=== PATIENT | male | born 1965 | race Caucasian/White ===

== ENCOUNTER 2016-04-29 14:59 | Emergency (ER) | payer OTHER ==
--- NOTE | 2016-04-29 15:14 | ED Physician Chart ---
Chief Complaint/HPI - Patient Information Date Seen:: 04/29/16 Time Seen:: 15:07 Chief Complaint:: Intermittent vertigo for about 3 weeks. History of Present Illness:: Intermittent vertigo for about 3 weeks. No fever. No MCDONALD. No visual changes in terms of blurry vision or diplopia. No weakness or numbness. No N/V/D. Allergies:: Allergies Allergy/AdvReac Type Severity Reaction Status Date / Time MDX No Known Allergies - Nka Allergy Verified 01/13/12 12:11 [No Known Allergies - Nka] Vitals:: see Nurse Note. Historian:: Patient Family MD/PCP:: Dr. Rojas LMP:: N/A Review:: Nurse's Note Reviewed Review of Systems - Review of Systems General/Constitutional: No fever, No chills, No weight loss, No weakness, No diaphoresis, No edema, No loss of appetite Skin: No skin lesions, No rash, No bruising Head: No headache, No light-headedness Eyes: No loss of vision, No pain, No diplopia ENT: No earache, No nasal drainage, No sore throat, No tinnitus Neck: No neck pain, No swelling, No thyromegaly, No stiffness, No mass noted Cardio Vascular: No chest pain, No palpitations, No PND, No orthopnea, No edema Pulmonary: No SOB, No cough, No sputum, No wheezing GI: No nausea, No vomiting, No diarrhea, No pain, No melena, No hematochezia, No constipation, No hematemesis G/U: No dysuria, No frequency, No hematuria Musculoskeletal: No bone or joint pain, No back pain, No muscle pain Endocrine: No polyuria, No polydipsia Psychiatric: No prior psych history Hematopoietic: No bruising, No lymphadenopathy Allergic/Immuno: No urticaria, No angioedema Neurological: No syncope, No focal symptoms, No weakness, No paresthesia, No headache, No seizure, No dizziness, No confusion, Vertigo Past Medical History - Past Medical History Past Medical History: HTN, DM Family History: HTN (father) Social History: Non Smoker, Alcohol (occasional), No Drug Use, , Employed, Other (lives with significant other.) 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 Surgical History: other (L knee and ankle surgeries about 20 years ago. R shoulder surgery about 2 years ago.) Psychiatricy History: None Medication: Reviewed Family Medical History - Family Member Father Ethnicity: Living Status: Hx Family Cancer: No Hx Family Coronary Artery Disease: No Hx Family Congestive Heart Failure: No Hx Family Hypertension: No Hx Family Stroke: No Hx Family Diabetes: Yes Hx Family Seizures: No Hx Family Dementia: No Hx Family AIDS: No Hx Family HIV: No Hx Family COPD: No Hx Family Hepatitis: No Hx Family Psychiatric Problems: No Hx Family Tuberculosis: No Physical Exam - Physical Examination General/Constitutional: Awake, Well-developed, well-nourished, Alert, No distress, GCS 15, Non-toxic appearing, Ambulatory Other Gen/Cons comments:: Breathes comfortably, speaks clearly, and ambulates without assistance without difficulty. Head: Atraumatic (cx) Eyes: Lids, conjuctiva normal, PERRL, EOMI Skin: Nl inspection, No rash, No skin lesions, No ecchymosis, Well hydrated, No lymphadenopathy ENMT: External ears, nose nl, TM canals nl, Nasal exam nl, Lips, teeth, gums nl , Oropharynx nl, Tonsils nl Neck: Nontender, Full ROM w/o pain, No nuchal rigidity, No mass, No stridor Respiratory: Nl effort/Exclusion, Clear to Auscultation, No Wheeze/Rhonchi/Rales Cardio Vascular: RRR, No murmur, gallop, rubs, NL S1 S2 Extremities: No tenderness or effusion, Full ROM, normal strength in all extremities, No edema, Normal digits & nails Neuro/Psych: Alert/oriented (oriented x 3), Judgement/insight normal, Mood normal, Normal gait, No focal deficits Other Neuro/Psych comments:: CN II to XII are grossly intact. Cerebellar exam (F to N, KATHERIN): normal. Negative Halpike Mari Manuver. ED Septic Shock - . Is Septic Shock (SBP<90, OR Lactate>4 mmol\L) present?: No Reassessment (Disposition) - Reassessment Reassessment:: 1535 Pt remains stable and well without vertigo or lightheadedness. Pt ambulates swiftly and steadily without assistance without difficulty. Accuchek was offered, but pt declined and stated that he preferred to check it at home. He stated that he is very familiar with managing his diabetes. Pt requests to go home now and does not want further observation/management in hospital. Aftercare instructions given. Reassessment Condition:: Improved - Diagnosis Diagnosis:: Intermittent vertigo consistent with acute labyrinthitis/BPPV, stable and currently asymptomatic. - Aftercare/Follow up Instructions Aftercare/Follow-Up Instructions:: Refer to Discharge Instructions Notes:: Continue present care. F/U with PCP Dr. Velazquez in 1-2 days for recheck. Return to ER immediately if condition worsens or if any further questions/problems. Drowsiness precautions given. Avoid driving or potential hazardous activities if vertigo symptom recurs or with the use of meclizine. Medication Prescribed:: Meclizine 25 mg tab one tab po q6h prn vertigo. D-15 R-0 - Patient Disposition Discharge/Transfer:: Home Time:: 15:40 Condition at Disposition:: Stable, Improved
== END 2016-04-29 15:50 | disposition home or self-care (01) ==
LOC: ER 14:59
DX: R42 Dizziness and giddiness (principal); E11.9 Type 2 diabetes mellitus without complications; I10 Essential (primary) hypertension

== ENCOUNTER 2016-06-20 22:37 | Inpatient (IN) | payer OTHER ==
[2016-06-20] MEDS ORDERED: Maalox 30 mL Cup PO ONE (22:56)
[2016-06-20] MEDS ORDERED: Donnatal Liq 5 ML UDC PO ONE (22:56)
--- NOTE | 2016-06-20 23:01 | ED Physician Chart ---
Chief Complaint/HPI - Patient Information Date Seen:: 06/20/16 Time Seen:: 22:57 Chief Complaint:: epigastric pain History of Present Illness:: pt here co epigastric pain x 1 hr. says it began after he ate hot wings. he has a hx of gastric reflux. he is not on any meds for this currently. he is on med for dm, htn and high chol. he is not a smoker. no sob. pt describes the pain as a severe burning. not sweaty. pt says pain is 8/10 no back pain no cough, no uri sx. no urinary change. Allergies:: Allergies Allergy/AdvReac Type Severity Reaction Status Date / Time No Known Allergies Allergy Verified 04/29/16 15:50 Historian:: Patient, Family Member (w) Review of Systems - Review of Systems General/Constitutional: No fever, No chills, No weight loss, No weakness, No diaphoresis, No edema, No loss of appetite Skin: No skin lesions, No rash, No bruising Head: No headache, No light-headedness Eyes: No loss of vision, No pain, No diplopia ENT: No earache, No nasal drainage, No sore throat, No tinnitus Neck: No neck pain, No swelling, No thyromegaly, No stiffness, No mass noted Cardio Vascular: No chest pain, No palpitations, No PND, No orthopnea, No edema Pulmonary: No SOB, No cough, No sputum, No wheezing GI: No nausea, No vomiting, No diarrhea, Pain, No melena, No hematochezia, No constipation, No hematemesis G/U: No dysuria, No frequency, No hematuria Musculoskeletal: No bone or joint pain, No back pain, No muscle pain Endocrine: No polyuria, No polydipsia Psychiatric: No prior psych history, No depression, No anxiety, No suicidal ideation Hematopoietic: No bruising, No lymphadenopathy Allergic/Immuno: No urticaria, No angioedema Neurological: No syncope, No focal symptoms, No weakness, No paresthesia, No headache, No seizure, No dizziness, No confusion, No vertigo Past Medical History - Past Medical History Past Medical History: HTN, DM, Dyslipidemia, PUD/GERD Social History: Non Smoker Medication: Reviewed Family Medical History - Family Member Father History Unknown: Yes Ethnicity: Living Status: Hx Family Cancer: No Hx Family Coronary Artery Disease: No Hx Family Congestive Heart Failure: No Hx Family Hypertension: No Hx Family Stroke: No Hx Family Diabetes: Yes Hx Family Seizures: No Hx Family Dementia: No Hx Family AIDS: No Hx Family HIV: No Hx Family COPD: No Hx Family Hepatitis: No Hx Family Psychiatric Problems: No Hx Family Tuberculosis: No Other Medical History: all 4 brothers have had gb sx Physical Exam - Physical Examination General/Constitutional: Awake, Well-developed, well-nourished, Alert, No distress, GCS 15, Non-toxic appearing, Ambulatory Other Gen/Cons comments:: mild obese. appears in sig discomfort. Head: Atraumatic Eyes: Lids, conjuctiva normal, PERRL, EOMI Skin: Nl inspection, No rash, No skin lesions, No ecchymosis, Well hydrated, No lymphadenopathy ENMT: External ears, nose nl, Nasal exam nl, Lips, teeth, gums nl Neck: Nontender, Full ROM w/o pain, No JVD, No nuchal rigidity, No bruit, No mass, No stridor Respiratory: Nl effort/Exclusion, Clear to Auscultation, No Wheeze/Rhonchi/Rales Cardio Vascular: RRR, No murmur, gallop, rubs, NL S1 S2 GI: No organomegaly, No hernia, Normal BS's, Nondistended, No mass/bruits, No McBurney tenderness Other GI comments:: tender at epigastrium no mass. no aaa. : No CVA tenderness Extremities: No tenderness or effusion, Full ROM, normal strength in all extremities, No edema, Normal digits & nails Other Extremities comments:: 2+ pulses b lower extr Neuro/Psych: Alert/oriented, DTR's symmetric, Normal sensory exam, Normal motor strength, Judgement/insight normal, Mood normal, Normal gait, No focal deficits Misc: normal gait, Normal back, No paraspinal tenderness Labs/Radiology/EKG Results - Lab Results Results: Laboratory Tests 06/20/16 06/20/16 06/20/16 23:03 23:03 23:03 WBC 10.8 D RBC 4.99 Hgb 15.1 Hct 42.8 D MCV 85.9 MCH 30.2 H MCHC Differential 35.2 RDW 12.3 Plt Count 205 MPV 9.9 Neutrophils % 68.7 Lymphocytes % 20.5 Monocytes % 7.0 Eosinophils % 3.7 Basophils % 0.1 Sodium 134 L Potassium 3.1 L Chloride 99 Carbon Dioxide 24.2 Anion Gap 13.9 BUN 21 Creatinine 0.9 Est GFR ( Amer) > 60.0 Est GFR (Non-Af Amer) > 60.0 BUN/Creatinine Ratio 23.3 Glucose 305 H Calcium 10.0 Total Bilirubin 1.4 H AST 67 H ALT 48 Alkaline Phosphatase 118 H Troponin I 0.01 Total Protein 7.6 Albumin 4.3 Globulin 3.3 Albumin/Globulin Ratio 1.3 Lipase 51 - Radiology Results Results: ct abd/p- gb is distended and full of gallstones. bibasilar lung scarring vs atelectasis - EKG Interpretations EKG Time:: 22:55 Rhythm: nsr [facility]: -47 Rate: 86 Comments:: LAD, no obv st/t changes ED Septic Shock - . Is Septic Shock (SBP<90, OR Lactate>4 mmol\L) present?: No Reassessment (Disposition) - Reassessment Reassessment:: pt feels much better pain is relieved. he was surprised to know his glucose was 300. he was unaware of his poor bp ctrl...says he is compliant he is willing to be admit. explained about gb. james walker...will admit. gb and liver enx and t bili and glucosee elev and htn all james mauro Reassessment Condition:: Improved - Diagnosis Diagnosis:: 1 gallbladder distended and full of gallstones w biliary colic 2 elevated t bilirubin 3 unctrld htn 4 poorly ctrld DM - Aftercare/Follow up Instructions Aftercare/Follow-Up Instructions:: Counseled pt regarding lab results/diagnosis & need follow up - Patient Disposition Admitted to:: Med/Surg Condition at Disposition:: Improved
[2016-06-20] MEDS ORDERED: Maalox 30 mL Cup ONE (23:03)
[2016-06-20] MEDS ORDERED: Donnatal Liq 5 ML UDC ONE (23:04)
[2016-06-20 23:09] LABS: % BASOPHILS 0.1 % (0.0-2.0); % EOSINOPHILS 3.7 % (0.0-5.0); % LYMPHOCYTES 20.5 % (20.0-50.0); % NEUTROPHILS 68.7 % (40.0-80.0); HEMOGLOBIN 15.1 gm/dL (13.2-17.3); MEAN CELL VOLUME 85.9 fl (80-99); MEAN CORPUSCULAR HEMOGLOBIN 30.2 pg (26.0-30.0); MEAN CORPUSCULAR HGB CONC 35.2 pg (28.0-36.0); MEAN PLATELET VOLUME 9.9 fl; NEUTROPHILE ABSOLUTE 7.4 Th/cmm (1.8-8.0); PLATELET COUNT 205 Th/cmm (150-400); RED BLOOD COUNT 4.99 Mil/cmm (4.30-5.70); RED CELL DISTRIBUTION WIDTH 12.3 % (11.5-20.0)
[2016-06-20 23:16] LABS: HEMATOCRIT 42.8 % (39.0-49.0); WHITE BLOOD COUNT 10.8 Th/cmm (4.8-10.8)
[2016-06-20 23:26] LABS: ALB/GLOB RATIO 1.3 (1.0-1.8); ALKALINE PHOSPHATASE 118 U/L (34-104); ANION GAP 13.9 (7.0-16.0); BILIRUBIN,TOTAL 1.4 mg/dL (0.3-1.0); BUN - UREA NITROGEN 21 mg/dL (7-25); BUN/CREATININE RATIO 23.3; CARBON DIOXIDE 24.2 mEq/L (21.0-31.0); CHLORIDE 99 mEq/L (98-107); CREATININE - SERUM 0.9 mg/dL (0.7-1.3); GLUCOSE 305 mg/dL (70-105); LIPASE 51 U/L (11-82); POTASSIUM SERUM 3.1 mEq/L (3.5-5.1); SGOT 67 U/L (13-39); SGPT/ALT 48 U/L (7-52); SODIUM SERUM 134 mEq/L (136-145)
[2016-06-20] MEDS ORDERED: Morphine Sulfate 4 mg/mL 1mL Syr ONE (23:28)
[2016-06-21] MEDS ORDERED: Sodium Chloride 0.9% 1,000 ML IV ONE (00:41)
[2016-06-21] MEDS ORDERED: KCL 20mEq/100mL Premix 20 MEQ/100 ML PIGGYBACK IV ONE (00:45)
[2016-06-21] MEDS: KCL 20mEq/100mL Premix 20 MEQ/100 ML PIGGYBACK IV SCH ×2 (00:46→03:04)
--- NOTE | 2016-06-21 03:26 | Admit Criteria Form ---
Admit Criteria Forms - Admit Criteria Diagnosis: ABDOMINAL PAIN Clinical Indications for Admission to Inpatient Care (Place 'X' for any and all applicable criteria): Admission is indicated for ANY ONE of the following(1)(2)(3)(4)(5): [ X]I. Inpatient admission required rather than observation care (Also use Abdominal Pain: Observation Care, as appropriate) because of ANY ONE of the following: [ ]a) Severe pain requiring acute inpatient management [X ]b) Identification of etiology/finding that requires inpatient care (eg, aortic dissection, free air) [ ]c) Absent bowel sounds with complete ileus(6) [ ]d) Suspected toxic megacolon [ ]e) Severe electrolyte abnormalities requiring inpatient care [ ]f) High fever or infection requiring inpatient admission as indicated by ANY ONE of following(7)(8): [ ] i) Appropriate outpatient or observational care antimicrobial treatment unavailable, not effective, or not feasible [ ] ii) Documented bacteremia [ ] iii) Temperature > 104.9 degrees F (oral) [ ] iv) T >103.1 F (oral) or < 96.8 F(rectal) that does not respond to all emergency treatment measures [ ]g) Signs of intestinal obstruction [B] [ ]h) Hemodynamic instability [ ]i) IV fluid to replace significant ongoing losses (greater than 3 L/m2 per day) (12)(13) [ ]j) Percutaneous or open drainage (eg, abscess, biliary tract ) procedures [ ]k) Parenteral nutrition regimen that must be implemented on inpatient basis [ ]l) Other condition,treatment or monitoring requiring inpatient admission. [ ]II. Peritoneal signs present [ ]III. Surgery needed that cannot be performed on an ambulatory basis. [ ]IV. Evaluation requires patient to not eat or drink for extended period ( eg, more than 24 hours). [ ]V. Contraindications and/or Inappropriate clinical situations for Observational Care in patients with abdominal pain, when ANY ONE of the following is required: [ ]a) Thorough evaluation is required to prevent catastrophic events due to delays in diagnosing (e.g.Mesenteric ischemia) 1,3 [ ]b) Patient with severe pathology or with chronic symptoms unlikely to improve in the ED stay (3) [ ]. General contraindications and/or Inappropriate clinical situations for Observational Care in patients with abdominal pain, when ANY ONE of the following is required: [ ]a) Prediction of prolongation of LOS based on ANY ONE of the following may be considered as a contraindication for observational care 2, 3, 4, 5, 6, 7, 8, 9, 10, 11 [ ]i) Age > 65 yrs. [ ]ii) Patient arriving by ambulance [ ]iii) Patient with high acuity [ ]iv) Patient requiring vital sign monitoring [ ]v) Patient on IV medication [ ]b) Systolic blood pressures 180mmHg 3,12 [ ]c) Patient with altered mental status including delirium and other alteration of consciousness, (3) [ ]d) Patient whose discharge disposition will be to a residential home or rehabilitation home should not be managed in Emergency Department Observation Unit. CMS rule requires 3 days hospital stay before such placement.3,13 [ ]e) Patient with failure to thrive due to broad array of etiologies 3,16,17 [ ]f) Inability to ambulate 3,14 Extended stay beyond goal length of stay may be needed for(2)(3): [ ]a) Persistent abdominal pain with suspected intra-abdominal process [ ]b) Diagnosed condition requiring continued stay (e.g., pancreatitis, complicated diverticulitis) [ ]c) Surgery (e.g., colectomy) The original [employer] includes the [facility] content created by [employer] has been revised. The portions of the content which have been revised are identified through the use of italic text or in bold, and [facility] has neither reviewed nor approved the modified material.All other unmodified content is copyright [employer] includes the [facility]. Please see references footnoted in the original [facility] edition 2016 Admit Criteria Met?: Yes
[2016-06-21 06:31] LABS: % EOSINOPHILS 0.4 % (0.0-5.0); % LYMPHOCYTES 13.9 % (20.0-50.0); % MONOCYTES 8.4 % (2.0-10.0); % NEUTROPHILS 77.3 % (40.0-80.0); HEMATOCRIT 39.1 % (39.0-49.0); HEMOGLOBIN 13.5 gm/dL (13.2-17.3); MEAN CORPUSCULAR HEMOGLOBIN 30.1 pg (26.0-30.0); MEAN CORPUSCULAR HGB CONC 34.6 pg (28.0-36.0); MEAN PLATELET VOLUME 10.5 fl; NEUTROPHILE ABSOLUTE 7.7 Th/cmm (1.8-8.0); PLATELET COUNT 178 Th/cmm (150-400); RED CELL DISTRIBUTION WIDTH 11.9 % (11.5-20.0); WHITE BLOOD COUNT 9.9 Th/cmm (4.8-10.8)
[2016-06-21] MEDS: INSULIN ASPART SLIDING SCALE 100 UNITS/ML UNIT SUBQ SCH ×3 (06:42→18:09)
[2016-06-21 06:43] LABS: ALB/GLOB RATIO 1.3 (1.0-1.8); ALKALINE PHOSPHATASE 118 U/L (34-104); AMYLASE SERUM 38 U/L (29-103); ANION GAP 8.8 (7.0-16.0); BILIRUBIN,TOTAL 1.9 mg/dL (0.3-1.0); BUN - UREA NITROGEN 18 mg/dL (7-25); BUN/CREATININE RATIO 22.5; CALCIUM SERUM 9.2 mg/dL (8.6-10.3); CARBON DIOXIDE 24.6 mEq/L (21.0-31.0); CHLORIDE 105 mEq/L (98-107); CREATININE - SERUM 0.8 mg/dL (0.7-1.3); GLUCOSE 289 mg/dL (70-105); LIPASE 33 U/L (11-82); POTASSIUM SERUM 4.4 mEq/L (3.5-5.1); SGOT 183 U/L (13-39); SGPT/ALT 163 U/L (7-52); SODIUM SERUM 134 mEq/L (136-145)
--- NOTE | 2016-06-21 09:24 | General Progress Note ---
Subjective - Review of Systems Events since last encounter: 06/21/16 RUQ and back pain last night has GB stones' LFT elevated HIDA ordered PE tender RUQ all family members has GB surgery DM, HTN, hyperlipedemia will schedule for surgery in AM if HIDA ok Objective - Results Result Diagrams: 06/21/16 05:09 06/21/16 05:09 Recent Labs: Laboratory Last Values WBC 9.9 Th/cmm (4.8-10.8) 06/21/16 05:09 RBC 4.50 Mil/cmm (4.30-5.70) 06/21/16 05:09 Hgb 13.5 gm/dL (13.2-17.3) 06/21/16 05:09 Hct 39.1 % (39.0-49.0) 06/21/16 05:09 MCV 87.0 fl (80-99) 06/21/16 05:09 MCH 30.1 pg (26.0-30.0) H 06/21/16 05:09 MCHC Differential 34.6 pg (28.0-36.0) 06/21/16 05:09 RDW 11.9 % (11.5-20.0) 06/21/16 05:09 Plt Count 178 Th/cmm (150-400) 06/21/16 05:09 MPV 10.5 fl 06/21/16 05:09 Neutrophils % 77.3 % (40.0-80.0) 06/21/16 05:09 Lymphocytes % 13.9 % (20.0-50.0) L 06/21/16 05:09 Monocytes % 8.4 % (2.0-10.0) 06/21/16 05:09 Eosinophils % 0.4 % (0.0-5.0) 06/21/16 05:09 Basophils % 0.0 % (0.0-2.0) 06/21/16 05:09 Sodium 134 mEq/L (136-145) L 06/21/16 05:09 Potassium 4.4 mEq/L (3.5-5.1) 06/21/16 05:09 Chloride 105 mEq/L (98-107) 06/21/16 05:09 Carbon Dioxide 24.6 mEq/L (21.0-31.0) 06/21/16 05:09 Anion Gap 8.8 (7.0-16.0) 06/21/16 05:09 BUN 18 mg/dL (7-25) 06/21/16 05:09 Creatinine 0.8 mg/dL (0.7-1.3) 06/21/16 05:09 Est GFR ( Amer) > 60.0 ml/min (>90) 06/21/16 05:09 Est GFR (Non-Af Amer) > 60.0 ml/min 06/21/16 05:09 BUN/Creatinine Ratio 22.5 06/21/16 05:09 Glucose 289 mg/dL (70-105) H 06/21/16 05:09 POC Glucose 259 MG/DL (70 - 105) H 06/21/16 06:38 Hemoglobin A1c % 9.2 % (4.0-6.0) H 06/20/16 23:03 Calcium 9.2 mg/dL (8.6-10.3) 06/21/16 05:09 Total Bilirubin 1.9 mg/dL (0.3-1.0) H 06/21/16 05:09 AST 183 U/L (13-39) H 06/21/16 05:09 ALT 163 U/L (7-52) H 06/21/16 05:09 Alkaline Phosphatase 118 U/L (34-104) H 06/21/16 05:09 Troponin I 0.01 ng/mL (0.01-0.05) 06/20/16 23:03 Total Protein 6.8 gm/dL (6.0-8.3) 06/21/16 05:09 Albumin 3.9 gm/dL (4.2-5.5) L 06/21/16 05:09 Globulin 2.9 gm/dL 06/21/16 05:09 Albumin/Globulin Ratio 1.3 (1.0-1.8) 06/21/16 05:09 Amylase 38 U/L (29-103) 06/21/16 05:09 Lipase 33 U/L (11-82) 06/21/16 05:09 - Physical Exam Vitals and I&O: Vital Signs Temp 97.6 F 06/21/16 04:00 Pulse 82 06/21/16 04:00 Resp 19 06/21/16 04:00 BP 139/80 06/21/16 04:00 Pulse Ox 93 06/21/16 04:00 Intake & Output 06/20/16 06/21/16 06/21/16 18:59 06:59 18:59 Intake Total 100 Balance 100 Intake: Intake, IV Amount 100 KCL 20mEq/100mL Premix 20 100 meq In 100 ml @ 50 mls/ hr IV Q2H [facility] Rx#: [id number] Oral 0 Other: # Voids 2 Active Medications: Current Medications Sodium Chloride (Nacl 0.9%) 1,000 mls @ 100 mls/hr IV .Q10H ONE Stop: 06/21/16 10:40 Last Admin: 06/21/16 00:47 Dose: 100 mls/hr Dextrose/Sodium Chloride (D5-0.45ns) 1,000 mls @ 100 mls/hr IV .Q10H [facility] Stop: 08/20/16 01:03 Ampicillin Sodium/Sulbactam (Sodium 3 gm/ Sodium Chloride) 100 mls @ 100 mls/ hr IV Q6HR [facility] Stop: 08/20/16 11:59 Insulin Aspart (Novolog Insulin Sliding Scale) 0 units SUBQ Q6HR [facility] PRN Reason: Protocol Stop: 08/20/16 05:59 Last Admin: 06/21/16 06:42 Dose: 6 units Morphine Sulfate (Morphine) 2 mg IVP Q3HR PRN PRN Reason: Pain (Severe) Stop: 08/20/16 01:01 Pantoprazole Sodium (Protonix) 40 mg IVP DAILY [facility] Stop: 08/20/16 08:59 Pneumococcal Polyvalent Vaccine (Pneumovax) 0.5 ml IM .ONCE ONE Stop: 06/21/16 12:01 Assessment/Plan - Problem List Patient Problems: All Active Problems DIZZINESS AFTER RIGHT EAR TRAUMA (Acute) Palpitations (Acute) R00.2
--- NOTE | 2016-06-21 09:39 | Diagnostic Imaging Report ---
CT scan abdomen and pelvis without intravenous contrast HISTORY: Pain Total DLP equals 761 CTDI equals 13.6 Axial sections were obtained from the xiphoid process down to the pubic symphysis. The liver exhibits a homogeneous parenchyma. No focal lesions. The spleen appears normal. There is a dilated gallbladder associated with several calculi. Haziness of the gallbladder wall margins. Cholecystitis cannot be radiographically excluded. Clinical correlation is needed. No focal abnormality seen within the pancreas. Right kidney appears normal. A subcentimeter hyperdensity seen within the anterior cortex of the left kidney. Question small calculus. No hydronephrosis. Surgical clips noted in the pericecal region consistent with a prior appendectomy. The pelvis demonstrates preservation of normal fat planes. No abnormal soft tissue masses or abnormal fluid collections. IMPRESSION: 1. Dilated gallbladder with cholelithiasis. Slight haziness of the gallbladder wall margins. Cholecystitis cannot be radiographically excluded. Clinical relation is needed. 2. Findings consistent with a prior appendectomy
--- NOTE | 2016-06-21 09:43 | Diagnostic Imaging Report ---
Portable chest x-ray History: Pain Allowing for portable technique the heart size is normal. No focal pulmonary parenchymal processes. No hilar or mediastinal abnormalities. Impression: No acute abnormalities.
[2016-06-21] MEDS: D5-0.45NS 1,000 ML IV SCH ×2 (10:26→21:59)
--- NOTE | 2016-06-21 11:41 | History & Physical ---
PATIENT IDENTIFICATION: A 51-year-old male. CHIEF COMPLAINT: Abdominal pain. HISTORY OF PRESENT ILLNESS: This is a 51-year-old [place]og[place] male with history of type 2 diabetes, hypertension, hyperlipidemia, who has longstanding history of hiatal hernia, states that yesterday after eating buffalo wing, he started to have severe epigastric pain, which radiated to the back and right upper quadrant associated with nausea, severity of pain, which he was scaling 10/10, which brought him to the Emergency Room. The patient was worked up in the Emergency Room. It did reveal the patient had cholelithiasis. GI cocktail was given which completely relieved the patient's symptoms. Currently, the patient is asymptomatic. The patient did receive IV morphine sulfate in the Emergency Room. PAST MEDICAL HISTORY: 1. Remarkable for diabetes. 2. Hypertension. 3. Hyperlipidemia. 4. Obesity. MEDICATIONS AT HOME: Taking Januvia, metformin, Lipitor, and blood pressure medicine, which he does not remember. ALLERGIES: The patient is not allergic to medications. 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 The patient does not smoke. Occasional alcohol use. Denies any street drug use. FAMILY MEDICAL HISTORY: Remarkable for diabetes, hypertension, cholelithiasis as well as kidney disease. REVIEW OF SYSTEMS: Currently, the patient denies any headache, blurred vision, double vision, dysphagia, odynophagia, runny nose, stuffy nose, fever, chills, cough, chest pain, shortness of breath, palpitation, dizziness, nausea, vomiting, diarrhea, dysuria, hematuria, hematochezia, or melena. No history of any seizure or syncopal episode. No weight loss or weight gain. PHYSICAL EXAMINATION: GENERAL: The patient is alert, awake, oriented, lying in the bed. VITAL SIGNS: Temperature 98.3, pulse is 89, respiratory rate is 18, blood pressure on arrival 172/87. HEENT: Normocephalic and atraumatic. Extraocular muscles are intact. Tongue was pink and coated. NECK: Supple. No JVD, lymphadenopathy, or thyromegaly. CARDIOVASCULAR: Both heart sounds are regular. No S3, no S4, no murmur. CHEST: Lung equal in expansion, no wheezing, and no crackles. ABDOMEN: Soft. Mild epigastric tenderness noted. No guarding and no rigidity. Vieira sign is negative. Bowel sounds are present. No palpable mass. EXTREMITIES: No edema, no cyanosis, and no clubbing. ____ +2. No calf tenderness noted. NEUROLOGIC: Alert, awake, oriented to time, place, and person. 2-12 cranial nerves are intact. Power in upper and lower extremities, 5+. Sensation to touch intact. Babinskis in both toes are going down. No cerebral sign. AVAILABLE DIAGNOSTIC DATA: Remarkable for abdominal CAT scan of the abdomen consistent with cholelithiasis. White count of 10.8, hemoglobin 15.1, platelet count 205,000, and potassium of 3.1. BUN and creatinine 21 and 0.9. Glucose of 305. Hemoglobin A1c was 9.2. AST and ALT is . Alkaline was 118 and total bilirubin 1.4. This morning, his bilirubin is 1.9. AST and ALT increased to 183, 163, and 118. Lipase and amylase normal. Chest x-ray, no infiltrate and no congestion. EKGs are unremarkable. CLINICAL IMPRESSION: 1. This is a 51-year-old male with history of diabetes mellitus, history of hyperlipidemia, hypertension, who presented to Emergency Room with acute onset of abdominal pain associated with nausea and vomiting, which has completely resolved after gastrointestinal cocktail. abdominal ultrasound has revealed the patient has a cholelithiasis. Liver function has increased along with the bilirubin, suspect the patient's symptoms probably secondary to cholelithiasis and cholecystitis. In the presence of symptoms being resolved with gastrointestinal cocktail, gastric ulcers and gastritis are always a possibility as a differential diagnosis. 2. Diabetes. 3. Hypertension. 4. Hyperlipidemia. PLAN: 1. Admit this patient to Med/Surg floor. 2. Keep him n.p.o. 3. IV fluid. 4. IV antibiotic. 5. Glucoscan a.c. and at bedtime. 6. Sliding scale insulin. 7. GI and General Surgery consultation. 8. Follow up lab. 9. Follow consult recommendations. 10. Care plan reviewed and discussed with the patient. JOB# [id number]
[2016-06-21] MEDS ORDERED: Pneumococcal Vaccine 0.5 mL Vial IM ONE (12:00)
[2016-06-21] MEDS: Ampicillin Sodium/Sulbactam 3 GM in Sodium Chloride 0.9% 100 ML IV SCH ×2 (12:57→19:40)
--- NOTE | 2016-06-21 14:40 | Diagnostic Imaging Report ---
Radionuclide biliary scan (HIDA scan) HISTORY: Cholelithiasis, pain 5.5 mCi technetium labeled biliary age and was using the exam. There is normal hepatic uptake and clearance. There is excretion through the common bile duct and into the small bowel. No gallbladder activity was identified through 2 hours. IMPRESSION: 1. Nonvisualization of the gallbladder. Findings are consistent with cystic duct obstruction. Clinical correlation is needed.
--- NOTE | 2016-06-21 23:54 | Consultation ---
REFERRING PHYSICIAN: Dr. Traore. REASON FOR CONSULTATION: Epigastric pain, gallstones. HISTORY OF PRESENT ILLNESS: This is a 51-year-old male who had eaten some buffalo wings and developed severe epigastric pain, came to the hospital. He also had some pain radiating to his back. He denies any nausea or vomiting. PAST MEDICAL HISTORY: Diabetes, hypertension, hyperlipidemia, obesity. PAST SURGICAL HISTORY: Appendectomy to the abdomen area. FAMILY HISTORY: Noncontributory. SOCIAL HISTORY: Denies tobacco or IV drug usage, drinks alcohol occasionally, but not heavy. ALLERGIES: None. CURRENT MEDICATIONS: Ampicillin, insulin, morphine, and Protonix. REVIEW OF SYSTEMS: Ten-point review of system was performed and the pertinent positive was the epigastric pain. All other systems were, otherwise, negative. PHYSICAL EXAMINATION: VITAL SIGNS: Temperature 97.6, breathing 19, pulse of 82, blood pressure 139/80, satting 93%. GENERAL: No apparent distress. EYES: Anicteric, normal conjunctivae. HEENT: Normocephalic, atraumatic. Moist mucous membranes. NECK: Soft, supple. CHEST: Clear effort____. CARDIOVASCULAR: Regular rate and rhythm. ABDOMEN: Soft, nondistended, tender epigastrium. No rebound or guarding. SKIN: Warm, dry. EXTREMITIES: Reveal no cyanosis. PSYCHOLOGIC: Alert and oriented x 3. LABORATORY DATA: Show white count 9.9, hemoglobin 13.5, platelets of 178. Total bilirubin 1.9, AST 183, ALT 163, alkaline phosphatase is 118, lipase 33. CT abdomen and pelvis showed gallstones and prior appendectomy. IMPRESSION: This is a 51-year-old male with epigastric pain and gallstones, elevated LFTs, could be a sign of cholecystitis, but on the other hand, could have biliary obstruction. PLAN: 1. Continue with HIDA scan. 2. Continue antibiotics. 3. MRCP. 4. Consider endoscopy. Thank you for allowing me to participate. Please call me if you have any questions. JOB# [id number]
[2016-06-22] MEDS: Ampicillin Sodium/Sulbactam 3 GM in Sodium Chloride 0.9% 100 ML IV SCH ×4 (00:01→23:46)
[2016-06-22] MEDS: INSULIN ASPART SLIDING SCALE 100 UNITS/ML UNIT SUBQ SCH ×5 (00:08→23:40)
[2016-06-22 06:41] LABS: % BASOPHILS 0.8 % (0.0-2.0); % EOSINOPHILS 4.7 % (0.0-5.0); % LYMPHOCYTES 19.7 % (20.0-50.0); % MONOCYTES 8.5 % (2.0-10.0); % NEUTROPHILS 66.3 % (40.0-80.0); HEMOGLOBIN 14.1 gm/dL (13.2-17.3); MEAN CELL VOLUME 88.5 fl (80-99); MEAN CORPUSCULAR HEMOGLOBIN 30.4 pg (26.0-30.0); MEAN CORPUSCULAR HGB CONC 34.4 pg (28.0-36.0); MEAN PLATELET VOLUME 9.9 fl; NEUTROPHILE ABSOLUTE 5.5 Th/cmm (1.8-8.0); PLATELET COUNT 186 Th/cmm (150-400); RED BLOOD COUNT 4.64 Mil/cmm (4.30-5.70); RED CELL DISTRIBUTION WIDTH 12.2 % (11.5-20.0); WHITE BLOOD COUNT 8.3 Th/cmm (4.8-10.8)
[2016-06-22 06:49] LABS: INR 1.01 (0.5-1.4); PROTHROMBIN TIME (TEST) 10.5 SECONDS (9.5-11.5)
[2016-06-22 06:57] LABS: ALB/GLOB RATIO 1.3 (1.0-1.8); ALKALINE PHOSPHATASE 136 U/L (34-104); ANION GAP 9.3 (7.0-16.0); BUN - UREA NITROGEN 11 mg/dL (7-25); BUN/CREATININE RATIO 13.8; CALCIUM SERUM 9.3 mg/dL (8.6-10.3); CARBON DIOXIDE 28.4 mEq/L (21.0-31.0); CHLORIDE 106 mEq/L (98-107); CREATININE - SERUM 0.8 mg/dL (0.7-1.3); GLUCOSE 204 mg/dL (70-105); POTASSIUM SERUM 3.7 mEq/L (3.5-5.1); SGOT 113 U/L (13-39); SGPT/ALT 272 U/L (7-52); SODIUM SERUM 140 mEq/L (136-145)
[2016-06-22] MEDS ORDERED: Bupivacaine 0.5% W/Ep 10 mL Vial ONE (07:34)
[2016-06-22] MEDS ORDERED: Midazolam 1mg/ml 2 ml vial IV ONE (08:14)
[2016-06-22] MEDS ORDERED: Meperidine 50 mg/mL 1mL Syr ONE ×2 (08:15→08:16)
[2016-06-22] MEDS ORDERED: fentaNYL Citrate 100 mcg/2mL Vial ONE (09:33)
[2016-06-22] MEDS ORDERED: Neostigmine 10mg/10mL Vial ONE (09:34)
[2016-06-22] MEDS ORDERED: Meperidine 25 mg/mL 1mL Syr IVP PRN (09:41)
[2016-06-22] MEDS ORDERED: Lactated Ringer 1,000 ML IV SCH (09:45)
[2016-06-22] MEDS ORDERED: Meperidine 25 mg/mL 1mL Syr ONE (10:34)
--- NOTE | 2016-06-22 11:43 | Consultation ---
REFERRING PHYSICIAN: Dr. Traore. REASON FOR CONSULTATION: Gallstones. Thank you for referring this patient to me. HISTORY OF PRESENT ILLNESS: This is a 51-year-old male who started having abdominal pain yesterday following fried chicken diet, came to the Emergency Room, was found to have gallstones. PAST MEDICAL HISTORY: Diabetes, hypertension, hyperlipidemia, and obesity. LABORATORY STUDIES: Showed CBC to be within normal. The bilirubin was slightly elevated to 1.9 with AST, ALT and alkaline phosphatase as well. The CT scan of the abdomen showed dilated gallbladder with stones. He had previous appendectomy evident on the CAT scan. A HIDA scan was done and this showed nonvisualization of the gallbladder with contrast into the small bowel. PHYSICAL EXAMINATION: ABDOMEN: The patient is tender in the right upper quadrant. Scar from previous appendectomy is noted. IMPRESSION: 1. Calculous cholecystitis. 2. Hypertension. 3. Diabetes mellitus. PLAN: We will proceed with laparoscopic versus open cholecystectomy. Informed consent discussed with the patient regarding the possible complications, and he understands. JOB# [id number]
[2016-06-22] MEDS: D5-0.45NS 1,000 ML IV SCH (12:01)
--- NOTE | 2016-06-22 13:27 | Operative Report ---
PREOPERATIVE DIAGNOSES: 1. Calculous cholecystitis. 2. Diabetes mellitus. 3. Hypertension. POSTOPERATIVE DIAGNOSIS: Calculous cholecystitis, markedly inflamed. OPERATION DONE: Laparoscopic cholecystectomy. SURGEON: Antonio Arrieta M.D. ANESTHESIA: General. ANESTHESIOLOGIST: Aguilar Suero M.D. ESTIMATED BLOOD LOSS: 20 mL OPERATIVE FINDINGS: Markedly distended gallbladder, which had to be drained. Marked thickening of the gallbladder wall. DESCRIPTION OF PROCEDURE: The patient was given general anesthesia. The abdomen was prepped with ChloraPrep and draped now in appropriate manner. An infraumbilical incision was made along the skin line. Veress needle was inserted. Insufflation of CO2 was carried successfully. A 10 mm trocar was placed through this incision, scope was introduced. There was good visualization of the intraabdominal cavity. There were adhesions of omentum to the gallbladder wall indicative of previous inflammatory reaction. Another 10 mm trocar was placed in upper abdomen at the midline and two 5 mm trocars were placed in the right flank. The operating table was elevated to head and turned to the left side. The fundus of the gallbladder was grasped and needle was used to aspirate gallbladder content. The infundibulum of the gallbladder was grasped and blunt dissection was carried out. The cystic duct was easily identified and clipped 3 times distally and once proximally and divided. Cystic artery was next clipped and divided. ____ dissection was carried out until the gallbladder was removed with an Endobag. There was some bleeding at the trocars site at the upper abdomen and two sutures of the ____ Logan needle was used to stop the bleeding. Then, 0.5% Marcaine with epinephrine was injected into the port sites. Incisions were closed with kiko. The patient tolerated the procedure well. JOB# [id number]
[2016-06-22] MEDS: Morphine Sulfate 2 mg/mL 1mL Syr IVP PRN (20:37)
[2016-06-23] MEDS: D5-0.45NS 1,000 ML IV SCH ×5 (01:00→18:59)
[2016-06-23] MEDS: Morphine Sulfate 2 mg/mL 1mL Syr IVP PRN ×4 (01:38→20:47)
[2016-06-23 05:44] LABS: % BASOPHILS 0.5 % (0.0-2.0); % EOSINOPHILS 0.4 % (0.0-5.0); % LYMPHOCYTES 12.3 % (20.0-50.0); % MONOCYTES 8.8 % (2.0-10.0); HEMATOCRIT 38.6 % (39.0-49.0); HEMOGLOBIN 13.5 gm/dL (13.2-17.3); MEAN CELL VOLUME 86.9 fl (80-99); MEAN CORPUSCULAR HEMOGLOBIN 30.4 pg (26.0-30.0); MEAN PLATELET VOLUME 9.8 fl; NEUTROPHILE ABSOLUTE 9.3 Th/cmm (1.8-8.0); PLATELET COUNT 186 Th/cmm (150-400); RED BLOOD COUNT 4.44 Mil/cmm (4.30-5.70); RED CELL DISTRIBUTION WIDTH 12.1 % (11.5-20.0)
[2016-06-23 05:51] LABS: WHITE BLOOD COUNT 11.9 Th/cmm (4.8-10.8)
[2016-06-23] MEDS: Ampicillin Sodium/Sulbactam 3 GM in Sodium Chloride 0.9% 100 ML IV SCH ×5 (05:53→17:12)
[2016-06-23 06:05] LABS: ALB/GLOB RATIO 1.3 (1.0-1.8); ALKALINE PHOSPHATASE 126 U/L (34-104); ANION GAP 8.4 (7.0-16.0); BILIRUBIN,TOTAL 1.2 mg/dL (0.3-1.0); BUN - UREA NITROGEN 10 mg/dL (7-25); BUN/CREATININE RATIO 12.5; CALCIUM SERUM 8.6 mg/dL (8.6-10.3); CARBON DIOXIDE 26.9 mEq/L (21.0-31.0); CHLORIDE 105 mEq/L (98-107); CREATININE - SERUM 0.8 mg/dL (0.7-1.3); GLUCOSE 222 mg/dL (70-105); POTASSIUM SERUM 3.3 mEq/L (3.5-5.1); SGOT 66 U/L (13-39); SGPT/ALT 185 U/L (7-52); SODIUM SERUM 137 mEq/L (136-145)
[2016-06-23] MEDS: INSULIN ASPART SLIDING SCALE 100 UNITS/ML UNIT SUBQ SCH ×3 (06:25→18:59)
--- NOTE | 2016-06-23 10:46 | General Progress Note ---
Subjective - Review of Systems Events since last encounter: 06/23/16 labs sl elvated LFT low fat diet possible DC in AM Objective - Results Result Diagrams: 06/23/16 05:32 06/23/16 05:32 Recent Labs: Laboratory Last Values WBC 11.9 Th/cmm (4.8-10.8) H D 06/23/16 05:32 RBC 4.44 Mil/cmm (4.30-5.70) 06/23/16 05:32 Hgb 13.5 gm/dL (13.2-17.3) 06/23/16 05:32 Hct 38.6 % (39.0-49.0) L 06/23/16 05:32 MCV 86.9 fl (80-99) 06/23/16 05:32 MCH 30.4 pg (26.0-30.0) H 06/23/16 05:32 MCHC Differential 35.0 pg (28.0-36.0) 06/23/16 05:32 RDW 12.1 % (11.5-20.0) 06/23/16 05:32 Plt Count 186 Th/cmm (150-400) 06/23/16 05:32 MPV 9.8 fl 06/23/16 05:32 Neutrophils % 78.0 % (40.0-80.0) 06/23/16 05:32 Lymphocytes % 12.3 % (20.0-50.0) L 06/23/16 05:32 Monocytes % 8.8 % (2.0-10.0) 06/23/16 05:32 Eosinophils % 0.4 % (0.0-5.0) 06/23/16 05:32 Basophils % 0.5 % (0.0-2.0) 06/23/16 05:32 PT 10.5 SECONDS (9.5-11.5) 06/22/16 06:07 INR 1.01 (0.5-1.4) 06/22/16 06:07 Sodium 137 mEq/L (136-145) 06/23/16 05:32 Potassium 3.3 mEq/L (3.5-5.1) L 06/23/16 05:32 Chloride 105 mEq/L (98-107) 06/23/16 05:32 Carbon Dioxide 26.9 mEq/L (21.0-31.0) 06/23/16 05:32 Anion Gap 8.4 (7.0-16.0) 06/23/16 05:32 BUN 10 mg/dL (7-25) 06/23/16 05:32 Creatinine 0.8 mg/dL (0.7-1.3) 06/23/16 05:32 Est GFR ( Amer) > 60.0 ml/min (>90) 06/23/16 05:32 Est GFR (Non-Af Amer) > 60.0 ml/min 06/23/16 05:32 BUN/Creatinine Ratio 12.5 06/23/16 05:32 Glucose 222 mg/dL (70-105) H 06/23/16 05:32 POC Glucose 207 MG/DL (70 - 105) H 06/23/16 06:21 Hemoglobin A1c % 9.2 % (4.0-6.0) H 06/20/16 23:03 Calcium 8.6 mg/dL (8.6-10.3) 06/23/16 05:32 Total Bilirubin 1.2 mg/dL (0.3-1.0) H 06/23/16 05:32 AST 66 U/L (13-39) H 06/23/16 05:32 ALT 185 U/L (7-52) H 06/23/16 05:32 Alkaline Phosphatase 126 U/L (34-104) H 06/23/16 05:32 Troponin I 0.01 ng/mL (0.01-0.05) 06/20/16 23:03 Total Protein 6.3 gm/dL (6.0-8.3) 06/23/16 05:32 Albumin 3.5 gm/dL (4.2-5.5) L 06/23/16 05:32 Globulin 2.8 gm/dL 06/23/16 05:32 Albumin/Globulin Ratio 1.3 (1.0-1.8) 06/23/16 05:32 Amylase 38 U/L (29-103) 06/21/16 05:09 Lipase 33 U/L (11-82) 06/21/16 05:09 - Physical Exam Vitals and I&O: Vital Signs Temp 98.0 F 06/23/16 08:00 Pulse 85 06/23/16 08:00 Resp 19 06/23/16 08:00 BP 169/87 06/23/16 08:00 Pulse Ox 94 06/23/16 08:00 Intake & Output 06/22/16 06/23/16 06/23/16 18:59 06:59 18:59 Intake Total 1959 1100 Balance 1959 1100 Intake: Intake, IV Amount 1100 1100 Ampicillin Sodium/ 100 100 Sulbactam 3 gm In Sodium Chloride 0.9% 100 ml @ 100 mls/hr IV Q6HR [facility] Rx #:[id number] D5-0.45NS 1,000 ml @ 100 1000 1000 mls/hr IV .Q10H [facility] Rx#: [id number] Oral 860 Other: # Voids 5 2 # Bowel Movements 0 Active Medications: Current Medications Dextrose/Sodium Chloride (D5-0.45ns) 1,000 mls @ 100 mls/hr IV .Q10H [facility] Stop: 08/20/16 01:03 Last Admin: 06/23/16 01:00 Dose: 100 mls/hr Ampicillin Sodium/Sulbactam (Sodium 3 gm/ Sodium Chloride) 100 mls @ 100 mls/ hr IV Q6HR [facility] Stop: 08/20/16 11:59 Last Admin: 06/23/16 05:53 Dose: 100 mls/hr Insulin Aspart (Novolog Insulin Sliding Scale) 0 units SUBQ Q6HR [facility] PRN Reason: Protocol Stop: 08/20/16 05:59 Last Admin: 06/23/16 06:25 Dose: 4 units Morphine Sulfate (Morphine) 2 mg IVP Q3HR PRN PRN Reason: Pain (Severe) Stop: 08/20/16 01:01 Last Admin: 06/23/16 08:38 Dose: 2 mg Pantoprazole Sodium (Protonix) 40 mg IVP DAILY [facility] Stop: 08/20/16 08:59 Last Admin: 06/23/16 08:38 Dose: 40 mg Assessment/Plan - Problem List Patient Problems: All Active Problems DIZZINESS AFTER RIGHT EAR TRAUMA (Acute) Palpitations (Acute) R00.2 Nutritional Asmnt/Malnutr-PDOC - Dietary Evaluation Malnutrition Findings (Please click <Entered> for more info): Nutritional Asmnt/Malnutrition Start: 06/21/16 14: 03 Text: Status: Complete Freq: Document 06/21/16 14:03 GSUN (Rec: 06/21/16 14:17 [email or web address]) Nutritional Asmnt/Malnutrition Patient General Information Nutritional Screening High Risk Screening Diagnosis Cholelithiasis, abdominal pain Pertinent Medical Hx/Surgical Hx DM, HTN, hyperlipidemia, obesity Subjective Information 51 year old male from home. RD consult for glucose 305. Pt was pleasant, cooperative, NPO , not in pain in time of visit . Provided edu on DM, all questions answered to pt's satisfaction. Pt appears to be aware and on top of his dx, scheduled to go to a DM cooking/nutrition class. Appetite usually good, no changes to appetite prior to adm. CBW 236.5lb. Current Diet Order/ Nutrition Support NPO Patient / S.O Can Pertinent Medications D5, Novolog sliding scale, Morphine, Protonix Pertinent Labs 06/20: A1c 9.2H, glucose 305 06/21: glucose 289H, AST 183H, ALT 163H, alkaline phosphatase 118H Nutritional Hx/Data Height 1.88 m Height (Calculated Centimeters) 188.0 Usual body Weight (lbs) 238 [place] Body Weight 190lb Recent Weight Change No Weight Status Overweight GI Symptoms Food Allergies No Cultural/Ethnic/Yazidism Belief Pt is fairly knowledgable in DM/CHO, able to identify most carbohydrates and tell RD healthy snacks. Pt often skips meals due to work schedule, discussed importance of consistency in carbohydrates. Pt recently moved in with girlfriend and has been eating better. Pt drinks diet sodas and lots of water. Skin Integrity/Comment: Petr 22. Skin intact. Estimated Nutritional Goals Calories/Kcals/Kg IBW 190lb/86kg Kcals Calculated 2150-2580kcal (25-30kcal/kg) Protein g/kg: IBW Protein Calculated 69g (1g/kg) Fluid: ml 2150-2580ml (1ml/kcal) Nutritional Problem 2. Problem Problem Altered nutrition related laboratory values related to Etiology DM aeb Signs/Symptoms: A1c 9.2, glucose 305 1. Problem Problem Altered GI function related to Etiology cholelithiasis aeb Signs/Symptoms: NPO, possible surgery pending Intervention/Recommendation Comments 1. When medically feasible to resume diet, recommend diet advancement to [address] 2. Provided edu on DM. Pleasant discussion, all questions answered to pt's satisfaction. Re-cap during follow as needed. Expected Outcomes/Goals Expected Outcomes/Goals 1. PO intake to meet at least 75% of estimated nutritional needs.
[2016-06-24] MEDS: INSULIN ASPART SLIDING SCALE 100 UNITS/ML UNIT SUBQ SCH ×3 (00:15→12:33)
[2016-06-24] MEDS: Ampicillin Sodium/Sulbactam 3 GM in Sodium Chloride 0.9% 100 ML IV SCH ×3 (00:54→12:09)
[2016-06-24 07:03] LABS: % BASOPHILS 0.1 % (0.0-2.0); % EOSINOPHILS 2.1 % (0.0-5.0); % LYMPHOCYTES 14.7 % (20.0-50.0); % MONOCYTES 8.9 % (2.0-10.0); % NEUTROPHILS 74.2 % (40.0-80.0); HEMATOCRIT 36.2 % (39.0-49.0); HEMOGLOBIN 12.6 gm/dL (13.2-17.3); MEAN CELL VOLUME 88.2 fl (80-99); MEAN CORPUSCULAR HEMOGLOBIN 30.7 pg (26.0-30.0); MEAN CORPUSCULAR HGB CONC 34.9 pg (28.0-36.0); MEAN PLATELET VOLUME 10.4 fl; NEUTROPHILE ABSOLUTE 7.1 Th/cmm (1.8-8.0); PLATELET COUNT 164 Th/cmm (150-400); RED BLOOD COUNT 4.11 Mil/cmm (4.30-5.70); RED CELL DISTRIBUTION WIDTH 12.2 % (11.5-20.0); WHITE BLOOD COUNT 9.6 Th/cmm (4.8-10.8)
[2016-06-24 07:32] LABS: ALB/GLOB RATIO 1.2 (1.0-1.8); ALKALINE PHOSPHATASE 126 U/L (34-104); ANION GAP 8.4 (7.0-16.0); BUN - UREA NITROGEN 9 mg/dL (7-25); BUN/CREATININE RATIO 12.9; CALCIUM SERUM 8.5 mg/dL (8.6-10.3); CARBON DIOXIDE 26.8 mEq/L (21.0-31.0); CHLORIDE 105 mEq/L (98-107); CREATININE - SERUM 0.7 mg/dL (0.7-1.3); GLUCOSE 232 mg/dL (70-105); POTASSIUM SERUM 3.2 mEq/L (3.5-5.1); SGOT 33 U/L (13-39); SGPT/ALT 122 U/L (7-52); SODIUM SERUM 137 mEq/L (136-145)
[2016-06-24] MEDS: D5-0.45NS 1,000 ML IV SCH (08:15)
[2016-06-24] MEDS ORDERED: Insulin Detemir 100 units/mL 10mL Vial SUBQ SCH (09:00)
--- NOTE | 2016-06-24 13:07 | General Progress Note ---
Subjective - Review of Systems Events since last encounter: labs near normal, improved from pre op minimal pain may DC on low fat diet may return to work 3 weeks post op Objective - Results Result Diagrams: 06/24/16 06:32 06/24/16 06:32 Recent Labs: Laboratory Last Values WBC 9.6 Th/cmm (4.8-10.8) 06/24/16 06:32 RBC 4.11 Mil/cmm (4.30-5.70) L 06/24/16 06:32 Hgb 12.6 gm/dL (13.2-17.3) L 06/24/16 06:32 Hct 36.2 % (39.0-49.0) L 06/24/16 06:32 MCV 88.2 fl (80-99) 06/24/16 06:32 MCH 30.7 pg (26.0-30.0) H 06/24/16 06:32 MCHC Differential 34.9 pg (28.0-36.0) 06/24/16 06:32 RDW 12.2 % (11.5-20.0) 06/24/16 06:32 Plt Count 164 Th/cmm (150-400) 06/24/16 06:32 MPV 10.4 fl 06/24/16 06:32 Neutrophils % 74.2 % (40.0-80.0) 06/24/16 06:32 Lymphocytes % 14.7 % (20.0-50.0) L 06/24/16 06:32 Monocytes % 8.9 % (2.0-10.0) 06/24/16 06:32 Eosinophils % 2.1 % (0.0-5.0) 06/24/16 06:32 Basophils % 0.1 % (0.0-2.0) 06/24/16 06:32 PT 10.5 SECONDS (9.5-11.5) 06/22/16 06:07 INR 1.01 (0.5-1.4) 06/22/16 06:07 Sodium 137 mEq/L (136-145) 06/24/16 06:32 Potassium 3.2 mEq/L (3.5-5.1) L 06/24/16 06:32 Chloride 105 mEq/L (98-107) 06/24/16 06:32 Carbon Dioxide 26.8 mEq/L (21.0-31.0) 06/24/16 06:32 Anion Gap 8.4 (7.0-16.0) 06/24/16 06:32 BUN 9 mg/dL (7-25) 06/24/16 06:32 Creatinine 0.7 mg/dL (0.7-1.3) 06/24/16 06:32 Est GFR ( Amer) > 60.0 ml/min (>90) 06/24/16 06:32 Est GFR (Non-Af Amer) > 60.0 ml/min 06/24/16 06:32 BUN/Creatinine Ratio 12.9 06/24/16 06:32 Glucose 232 mg/dL (70-105) H 06/24/16 06:32 POC Glucose 247 MG/DL (70 - 105) H 06/24/16 11:49 Hemoglobin A1c % 9.2 % (4.0-6.0) H 06/20/16 23:03 Calcium 8.5 mg/dL (8.6-10.3) L 06/24/16 06:32 Total Bilirubin 1.0 mg/dL (0.3-1.0) 06/24/16 06:32 AST 33 U/L (13-39) 06/24/16 06:32 ALT 122 U/L (7-52) H 06/24/16 06:32 Alkaline Phosphatase 126 U/L (34-104) H 06/24/16 06:32 Troponin I 0.01 ng/mL (0.01-0.05) 06/20/16 23:03 Total Protein 6.1 gm/dL (6.0-8.3) 06/24/16 06:32 Albumin 3.3 gm/dL (4.2-5.5) L 06/24/16 06:32 Globulin 2.8 gm/dL 06/24/16 06:32 Albumin/Globulin Ratio 1.2 (1.0-1.8) 06/24/16 06:32 Amylase 38 U/L (29-103) 06/21/16 05:09 Lipase 33 U/L (11-82) 06/21/16 05:09 - Physical Exam Vitals and I&O: Vital Signs Temp 97.9 F 06/24/16 04:00 Pulse 80 06/24/16 04:00 Resp 20 06/24/16 04:00 BP 154/89 06/24/16 04:00 Pulse Ox 93 06/24/16 04:00 Intake & Output 06/23/16 06/24/16 06/24/16 18:59 06:59 18:59 Intake Total 1200 100 100 Balance 1200 100 100 Intake: Intake, IV Amount 1200 100 100 Ampicillin Sodium/ 200 100 100 Sulbactam 3 gm In Sodium Chloride 0.9% 100 ml @ 100 mls/hr IV Q6HR [facility] Rx #:[id number] D5-0.45NS 1,000 ml @ 100 1000 mls/hr IV .Q10H [facility] Rx#: [id number] Active Medications: Current Medications Dextrose/Sodium Chloride (D5-0.45ns) 1,000 mls @ 100 mls/hr IV .Q10H [facility] Stop: 08/20/16 01:03 Last Admin: 06/24/16 08:15 Dose: Not Given Ampicillin Sodium/Sulbactam (Sodium 3 gm/ Sodium Chloride) 100 mls @ 100 mls/ hr IV Q6HR [facility] Stop: 08/20/16 11:59 Last Admin: 06/24/16 12:09 Dose: 100 mls/hr Insulin Aspart (Novolog Insulin Sliding Scale) 0 units SUBQ Q6HR [facility] PRN Reason: Protocol Stop: 08/20/16 05:59 Last Admin: 06/24/16 12:33 Dose: 4 units Insulin Detemir (Levemir Insulin) 12 units SUBQ DAILY [facility] PRN Reason: Protocol Stop: 08/23/16 08:59 Last Admin: 06/24/16 09:25 Dose: 12 units Morphine Sulfate (Morphine) 2 mg IVP Q3HR PRN PRN Reason: Pain (Severe) Stop: 08/20/16 01:01 Last Admin: 06/23/16 20:47 Dose: 2 mg Pantoprazole Sodium (Protonix) 40 mg IVP DAILY [facility] Stop: 08/20/16 08:59 Last Admin: 06/24/16 09:23 Dose: 40 mg Assessment/Plan - Problem List Patient Problems: All Active Problems DIZZINESS AFTER RIGHT EAR TRAUMA (Acute) Palpitations (Acute) R00.2 Nutritional Asmnt/Malnutr-PDOC - Dietary Evaluation Malnutrition Findings (Please click <Entered> for more info): Nutritional Asmnt/Malnutrition Start: 06/21/16 14: 03 Text: Status: Complete Freq: Document 06/21/16 14:03 FRANCHESCA (Rec: 06/21/16 14:17 [email or web address]) Nutritional Asmnt/Malnutrition Patient General Information Nutritional Screening High Risk Screening Diagnosis Cholelithiasis, abdominal pain Pertinent Medical Hx/Surgical Hx DM, HTN, hyperlipidemia, obesity Subjective Information 51 year old male from home. RD consult for glucose 305. Pt was pleasant, cooperative, NPO , not in pain in time of visit . Provided edu on DM, all questions answered to pt's satisfaction. Pt appears to be aware and on top of his dx, scheduled to go to a DM cooking/nutrition class. Appetite usually good, no changes to appetite prior to adm. CBW 236.5lb. Current Diet Order/ Nutrition Support NPO Patient / S.O Can Pertinent Medications D5, Novolog sliding scale, Morphine, Protonix Pertinent Labs 06/20: A1c 9.2H, glucose 305 06/21: glucose 289H, AST 183H, ALT 163H, alkaline phosphatase 118H Nutritional Hx/Data Height 1.88 m Height (Calculated Centimeters) 188.0 Usual body Weight (lbs) [address] [employer] Body Weight 190lb Recent Weight Change No Weight Status Overweight GI Symptoms Food Allergies No Cultural/Ethnic/Jewish Belief Pt is fairly knowledgable in DM/CHO, able to identify most carbohydrates and tell RD healthy snacks. Pt often skips meals due to work schedule, discussed importance of consistency in carbohydrates. Pt recently moved in with girlfriend and has been eating better. Pt drinks diet sodas and lots of water. Skin Integrity/Comment: Petr 22. Skin intact. Estimated Nutritional Goals Calories/Kcals/Kg IBW 190lb/86kg Kcals Calculated 2150-2580kcal (25-30kcal/kg) Protein g/kg: IBW Protein Calculated 69g (1g/kg) Fluid: ml 2150-2580ml (1ml/kcal) Nutritional Problem 2. Problem Problem Altered nutrition related laboratory values related to Etiology DM aeb Signs/Symptoms: A1c 9.2, glucose 305 1. Problem Problem Altered GI function related to Etiology cholelithiasis aeb Signs/Symptoms: NPO, possible surgery pending Intervention/Recommendation Comments 1. When medically feasible to resume diet, recommend diet advancement to [address] 2. Provided edu on DM. Pleasant discussion, all questions answered to pt's satisfaction. Re-cap during follow as needed. Expected Outcomes/Goals Expected Outcomes/Goals 1. PO intake to meet at least 75% of estimated nutritional needs.
--- NOTE | 2016-06-24 14:25 | Discharge Summary ---
PRINCIPAL DIAGNOSES: 1. Acute cholecystitis and cholelithiasis with cystic duct obstruction, status post laparoscopic cholecystectomy. 2. Diabetes mellitus. 3. Hypertension. 4. Hyperlipidemia. 5. Obesity. 6. Possible gastritis. REASON FOR ADMISSION: A 51-year-old French male who presented to the Emergency Room for acute onset of abdominal pain associated with nausea. The patient was worked up in the Emergency Room and subsequently admitted. Please refer to my dictated medical H and P for further information. HOSPITAL COURSE: The patient was admitted to med/surg floor. The patient was kept n.p.o., IV fluids and IV antibiotic was started. GI and General Surgery consult has been requested. The patient had a HIDA scan, which came out positive for cystic duct obstruction. The patient's symptoms were resolved of abdominal pain after the patient was given GI cocktail. According to the patient, he did have an abnormal liver function elevation as well on the day of admission. The patient did have a laparoscopic cholecystectomy done by Dr. Alvarez on 06/22/2016. Operative finding was consistent with markedly distended gallbladder with marked thickening of the gallbladder wall. The patient post-procedure was admitted to the medical floor where the patient was kept until the patient was discharged. The patient continues to improve with postoperative ileus. The patient was placed on a clear liquid diet, which was advanced to a low fat diet, which the patient tolerated fairly well. The patient was noted to have resolution of SGOT and SGPT to 122 and 126 respectively. His blood sugar was managed with Glucoscan a.c. and at bedtime with covering the blood sugar with sliding scale NovoLog insulin and basal insulin as well. Since the patient was cleared by the surgeons, the patient was discharged home with outpatient followup with the surgeon in 1 week along with follow up with the screen tender in 1 week. At the time of discharge, all of his meds were reconciliated per pain management. The patient was advised to take [id number] ibuprofen or Tylenol. JOB# [id number]
--- NOTE | 2016-06-25 13:10 | Pathology Report ---
[id number] Collection date: 06/22/2016 Surgeon: Dr. Philippe Alvarez Specimen Description: Gallbladder Gross Description: Received in formalin is a 9 x 3.8 x 2.5 cm distended gallbladder with a smooth cunningham-greco outer surface. Opening the gallbladder shows multiple dark green gallstones ranging from 0.2 to 1.5 cm in greatest dimension. The gallbladder wall ranges from 0.1 t o 0.2 cm in thickness and the mucosa has a dark green intact appearance. Metallurgical Specialist sections are submitted in one cassette. Gross Pathologic Diagnosis: Cholelithiasis, gallbladder. Microscopic Description: The histologic sections show gallbladder with chronic inflammation present consisting of lymphocytes and plasma cells. Diagnosis: Chronic cholecystitis, gallbladder. [facility]# [id number] MTDD
== END 2016-06-24 14:15 | disposition home or self-care (01) | DRG 419 ==
LOC: ER 22:37 → MSI 06-21 00:55
PROVIDERS: ADMIT Internal Medicine; ATTEND Internal Medicine
PROC: 0FT44ZZ Resection of Gallbladder, Percutaneous Endoscopic Approach (ICD-10-PCS; principal; 2016-06-22)
DX: K80.00 Calculus of gallbladder with acute cholecystitis without obstruction (principal); E87.5 Hyperkalemia; I10 Essential (primary) hypertension; Z87.11 Personal history of peptic ulcer disease; E11.9 Type 2 diabetes mellitus without complications; Z83.3 Family history of diabetes mellitus; Z83.79 Family history of other diseases of the digestive system; E66.9 Obesity, unspecified; Z68.31 Body mass index [BMI] 31.0-31.9, adult; E78.5 Hyperlipidemia, unspecified; K21.9 Gastro-esophageal reflux disease without esophagitis; Z82.49 Family history of ischemic heart disease and other diseases of the circulatory system
CPT/HCPCS: 36415-UA; 71010-TC; 78226-TC; 80053-TC; 82150-TC; 82948-90; 83036-90; 83690-TC; 84484-TC; 85025-TC; 85610-TC; 87070-90; 87075-90; 87205-90; 88304-TC; 90782; 90799; 93005; 94640; 94760; 96374; 96375; A9537; C9113; J0295; J0360; J1815; J2250; J2270; J2405; J2704; J2710; J3480; J7030; X6024; X6026; X6206; X6258; Z7610